=== PATIENT | female | born 1985 | race American Indian/Alaskan Native ===

== ENCOUNTER 2017-12-05 16:36 | Emergency (ER) | payer MEDICAID ==
[2017-12-05 16:55] VITALS: BP 111/75
--- NOTE | 2017-12-05 20:36 | Emergency Department Report ---
Eye Injury/Foreign Body - HPI Duration: 2 Days Eye Location: Left Severity: Moderate Tetanus Status: Up to Date Eye Symptoms: Eye Pain: Yes, Blurred Vision: No, Eye Redness: Yes, Grinding/ Hammering Metal: No, Used Eye Protection: No, Contact Lens Use: No, Recalls Injury: No, Photophobia: No Other History: This is a 32 y.o. female that presents with left eye itching and crusting for 2 days. Patient reports feeling pain and drainage in left ear. She was on antibiotics in [facility] for an abscess. States she has been having bilateral ear pain for 1 month and using peroxide to clean both ears daily with no improvement of symptoms. States her 1 year old had pink eye 1 week ago and passed it to her 17 year old. She woke up 2 days ago with crusting and drainage from left eye. Reports both eyes being pink in the morning. She is taking sudafed and benadryl because she thought she had sinus infection causing symptoms, but she is not getting better. Denies fever, sore throat, nausea/ vomiting, visual changes, body aches, and chest pain. ED Review of Systems ROS: Stated complaint: EAR AND EYE PAIN Other details as noted in HPI Constitutional: denies: chills, fever Eyes: eye pain, eye discharge. denies: vision change ENT: ear pain (left ear pain and clear drainage), congestion. denies: throat pain, dental pain, hearing loss, epistaxis Respiratory: denies: cough, shortness of breath, wheezing Cardiovascular: denies: chest pain, palpitations, edema, syncope Gastrointestinal: denies: abdominal pain, nausea, vomiting, diarrhea Neurological: denies: headache, weakness, numbness, paresthesias Psychiatric: denies: anxiety, depression ED Past Medical Hx - Past Medical History Previous Medical History?: No Hx Hypertension: No Hx Congestive Heart Failure: No Hx Diabetes: No Hx Deep Vein Thrombosis: No Hx Renal Disease: No Hx Sickle Cell Disease: No Hx Seizures: No Hx Asthma: No Hx COPD: No Hx HIV: No - Surgical History Past Surgical History?: Yes Additional Surgical History: hernia repair - Social History Smoking Status: Never Smoker Substance Use Type: None - Medications Home Medications: Home Medications Medication Instructions Recorded Confirmed Last Taken Type Ferrous Sulfate [Feosol 325 MG tab] 325 mg PO BID #60 tablet 09/21/14 03/30/16 2 Weeks Ago Rx ~01/31/16 Ibuprofen [Motrin 600 MG tab] 600 mg PO Q6H #30 tablet 09/21/14 03/30/16 Unknown Rx oxyCODONE /ACETAMINOPHEN [Percocet 1 tab PO Q6H PRN #30 tablet 09/21/14 Unknown Rx 5/325 mg] Valacyclovir HCl [valACYclovir] 1 tab PO BID 02/14/16 03/30/16 2 Weeks Ago History ~01/31/16 Azithromycin [AzaSITE Opth Drops] 2.5 ml OP DAILY 7 Days #1 drops 12/05/17 Unknown Rx Cetirizine HCl [Zyrtec] 10 mg PO DAILY #30 tablet 12/05/17 Unknown Rx Eye Injury Exam - Exam General: Vital signs noted. No distress. Alert and acting appropriately. - Visual Acuity Bilateral Eye Exam: Left Chemosis, Left Mucous Discharge, Both Injection, Both EOMI, Neither Abnormal Pupil, Neither Eye Foreign Body, Neither Lid Foreign Body, Neither Purulent Discharge, Neither Fluorescein Uptake, Neither Fluorescein Uptake (slit lamp), Neither Cell/Flare (slit lamp), Neither Corneal Edema, Neither Photophobia ED Course Vital Signs 12/05/17 16:50 Temperature 98.7 F Pulse Rate 112 H Respiratory 18 Rate Blood Pressure 111/75 O2 Sat by Pulse 98 Oximetry ED Medical Decision Making - Medical Decision Making This is a 32 year old female that presents with bilateral pink eyes with mucous discharge on left for 2 days. She is having left ear pain for 1 month. Patient is stable and was examined by me. Vitals normal. Physical assessment susceptible of conjunctivitis bilateral and allergic rhinitis. Start azithromycin gtts and zyrtec. Discussed plan with patient and she agreed with plan. Discharged home in stable condition. Follow up with PCP in 24-72 hours. Critical care attestation.: If time is entered above; I have spent that time in minutes in the direct care of this critically ill patient, excluding procedure time. ED Disposition Clinical Impression: Conjunctivitis Qualifiers: Conjunctivitis type: acute Acute conjunctivitis type: bacterial Laterality: bilateral Qualified Code(s): H10.33 - Unspecified acute conjunctivitis, bilateral Allergic rhinitis Qualifiers: Allergic rhinitis trigger: pollen Allergic rhinitis seasonality: seasonal Qualified Code(s): J30.1 - Allergic rhinitis due to pollen Disposition: DC-01 TO HOME OR SELFCARE Is pt being admited?: No Does the pt Need Aspirin: No Condition: Stable Instructions: Allergic Rhinitis (ED), Conjunctivitis (ED) Additional Instructions: Pinkeye is very contagious so please wash hands frequently. Don't share any towels or bedding to prevent spread of infection. Use cool compress to each eye to decrease swelling. Avoid rubbing or touching eyes, because rubbing eyes can cause worsening symptoms. Take medication as prescribed. Follow up with Primary Care Provider in 24-72 hours. Return to ER if swelling don't improve or difficulty breathing after 2 days of medication. Prescriptions: Azithromycin [AzaSITE Opth Drops] 2.5 ml OP DAILY 7 Days #1 drops Cetirizine HCl [Zyrtec] 10 mg PO DAILY #30 tablet Referrals: [facility] [Outside] - 3-5 Days [facility] [Outside] - 3-5 Days [facility] [Outside] - 3-5 Days Forms: Work/School Release Form(ED) Time of Disposition: 20:46 Print Language: ARMENIAN
== END 2017-12-05 20:55 | disposition home or self-care (01) ==
LOC: ED 16:36
DX: H10.9 Unspecified conjunctivitis (principal); J30.9 Allergic rhinitis, unspecified
CPT/HCPCS: 99282

== ENCOUNTER 2017-12-06 22:37 | Emergency (ER) | payer SELFPAY ==
[2017-12-06 22:51] VITALS: BP 111/76
--- NOTE | 2017-12-07 00:29 | Emergency Department Report ---
ED ENT HPI - General Chief complaint: Earache Stated complaint: EARACHE Time Seen by Provider: 12/07/17 00:21 Source: patient Mode of arrival: Ambulatory Limitations: No Limitations - History of Present Illness Initial comments: This is a 32-year-old female nontoxic, well nourished in appearance, no acute signs of distress presents to the ED with c/o of left ear pain 3 days. Patient stated that she has ear discharge and tragus pain. Patient denies any mastoid tenderness. Patient denies any recent travels. Patient denies any fever, chills, nausea, vomiting, headache, stiff neck, blurry vision, chest pain or shortness of breath. Patient denies any allergies or significant past medical history. MD complaint: ear pain -: days(s) (3) Location: L ear Severity: mild Severity scale (0 -10): 8 Quality: aching Consistency: constant Improves with: none Worsens with: none Associated Symptoms: denies: fever, cough, gum swelling, toothache, pain with swallowing, sore throat, tinnitus, hearing loss, discharge from ear, rhinorrhea - Related Data Home Medications Medication Instructions Recorded Confirmed Last Taken Valacyclovir HCl [valACYclovir] 1 tab PO BID 02/14/16 03/30/16 2 Weeks Ago ~01/31/16 Previous Rx's Medication Instructions Recorded Last Taken Type Ferrous Sulfate [Feosol 325 MG tab] 325 mg PO BID #60 tablet 09/21/14 2 Weeks Ago Rx ~01/31/16 Ibuprofen [Motrin 600 MG tab] 600 mg PO Q6H #30 tablet 09/21/14 Unknown Rx oxyCODONE /ACETAMINOPHEN [Percocet 1 tab PO Q6H PRN #30 tablet 09/21/14 Unknown Rx 5/325 mg] Azithromycin [AzaSITE Opth Drops] 2.5 ml OP DAILY 7 Days #1 drops 12/05/17 Unknown Rx Cetirizine HCl [Zyrtec] 10 mg PO DAILY #30 tablet 12/05/17 Unknown Rx Amoxicillin [Amoxicillin TAB] 875 mg PO BID #20 tablet 12/07/17 Unknown Rx Ciprofloxacin 0.2%(Nf) 4 drops TID #1 droperette 12/07/17 Unknown Rx [Ciprofloxacin Otic 0.2%(Nf)] Allergies Allergy/AdvReac Type Severity Reaction Status Date / Time No Known Allergies Allergy Verified 08/18/14 03:12 ED Dental HPI - General Chief complaint: Earache Stated complaint: EARACHE Time Seen by Provider: 12/07/17 00:21 Source: patient Mode of arrival: Ambulatory Limitations: No Limitations - Related Data Home Medications Medication Instructions Recorded Confirmed Last Taken Valacyclovir HCl [valACYclovir] 1 tab PO BID 02/14/16 03/30/16 2 Weeks Ago ~01/31/16 Previous Rx's Medication Instructions Recorded Last Taken Type Ferrous Sulfate [Feosol 325 MG tab] 325 mg PO BID #60 tablet 09/21/14 2 Weeks Ago Rx ~01/31/16 Ibuprofen [Motrin 600 MG tab] 600 mg PO Q6H #30 tablet 09/21/14 Unknown Rx oxyCODONE /ACETAMINOPHEN [Percocet 1 tab PO Q6H PRN #30 tablet 09/21/14 Unknown Rx 5/325 mg] Azithromycin [AzaSITE Opth Drops] 2.5 ml OP DAILY 7 Days #1 drops 12/05/17 Unknown Rx Cetirizine HCl [Zyrtec] 10 mg PO DAILY #30 tablet 12/05/17 Unknown Rx Amoxicillin [Amoxicillin TAB] 875 mg PO BID #20 tablet 12/07/17 Unknown Rx Ciprofloxacin 0.2%(Nf) 4 drops TID #1 droperette 12/07/17 Unknown Rx [Ciprofloxacin Otic 0.2%(Nf)] Allergies Allergy/AdvReac Type Severity Reaction Status Date / Time No Known Allergies Allergy Verified 08/18/14 03:12 ED Review of Systems ROS: Stated complaint: EARACHE Other details as noted in HPI Constitutional: denies: chills, fever Eyes: denies: eye pain, eye discharge, vision change ENT: ear pain. denies: throat pain Respiratory: denies: cough, shortness of breath, wheezing Cardiovascular: denies: chest pain, palpitations Endocrine: no symptoms reported Gastrointestinal: denies: abdominal pain, nausea, diarrhea Genitourinary: denies: urgency, dysuria, discharge Musculoskeletal: denies: back pain, joint swelling, arthralgia Skin: denies: rash, lesions Neurological: denies: headache, weakness, paresthesias Psychiatric: denies: anxiety, depression Hematological/Lymphatic: denies: easy bleeding, easy bruising ED Past Medical Hx - Past Medical History Previous Medical History?: No Hx Hypertension: No Hx Congestive Heart Failure: No Hx Diabetes: No Hx Deep Vein Thrombosis: No Hx Renal Disease: No Hx Sickle Cell Disease: No Hx Seizures: No Hx Asthma: No Hx COPD: No Hx HIV: No - Surgical History Past Surgical History?: Yes Additional Surgical History: hernia repair - Social History Smoking Status: Current Every Day Smoker Substance Use Type: None - Medications Home Medications: Home Medications Medication Instructions Recorded Confirmed Last Taken Type Ferrous Sulfate [Feosol 325 MG tab] 325 mg PO BID #60 tablet 09/21/14 03/30/16 2 Weeks Ago Rx ~01/31/16 Ibuprofen [Motrin 600 MG tab] 600 mg PO Q6H #30 tablet 09/21/14 03/30/16 Unknown Rx oxyCODONE /ACETAMINOPHEN [Percocet 1 tab PO Q6H PRN #30 tablet 09/21/14 Unknown Rx 5/325 mg] Valacyclovir HCl [valACYclovir] 1 tab PO BID 02/14/16 03/30/16 2 Weeks Ago History ~01/31/16 Azithromycin [AzaSITE Opth Drops] 2.5 ml OP DAILY 7 Days #1 drops 12/05/17 Unknown Rx Cetirizine HCl [Zyrtec] 10 mg PO DAILY #30 tablet 12/05/17 Unknown Rx Amoxicillin [Amoxicillin TAB] 875 mg PO BID #20 tablet 12/07/17 Unknown Rx Ciprofloxacin 0.2%(Nf) 4 drops TID #1 droperette 12/07/17 Unknown Rx [Ciprofloxacin Otic 0.2%(Nf)] ED Physical Exam - General Limitations: No Limitations General appearance: alert, in no apparent distress - Head Head exam: Present: atraumatic, normocephalic - Eye Eye exam: Present: normal appearance Pupils: Present: normal accommodation - ENT ENT exam: Present: normal orophraynx, mucous membranes moist - Expanded ENT Exam Expanded TM/Canal exam: Erythema: Left TM, Bulging: Left TM Mouth exam: Present: normal external inspection, tongue normal. Absent: drooling, trismus, muffled voice, tongue elevation, laceration Teeth exam: Present: normal inspection Throat exam: Positive: normal inspection, other (uvula midline). Negative: tonsillar erythema, tonsillomegaly, tonsillar exudate, R peritonsillar mass, L peritonsillar mass - Neck Neck exam: Present: normal inspection, full ROM. Absent: tenderness, meningismus, lymphadenopathy - Respiratory Respiratory exam: Present: normal lung sounds bilaterally. Absent: respiratory distress, wheezes, rales, rhonchi, stridor - Cardiovascular Cardiovascular Exam: Present: regular rate, normal rhythm, normal heart sounds. Absent: irregular rhythm, systolic murmur, diastolic murmur, rubs, gallop - GI/Abdominal GI/Abdominal exam: Present: soft, normal bowel sounds - Extremities Exam Extremities exam: Present: normal inspection, full ROM, normal capillary refill - Back Exam Back exam: Present: normal inspection, full ROM - Neurological Exam Neurological exam: Present: alert, oriented X3, normal gait - Psychiatric Psychiatric exam: Present: normal affect, normal mood - Skin Skin exam: Present: warm, dry, intact, normal color. Absent: rash - Other Other exam information: Positive tragus tenderness. Positive draiange of left ear. ED Course Vital Signs 12/06/17 22:45 Temperature 98.5 F Pulse Rate 122 H Respiratory 18 Rate Blood Pressure 111/76 O2 Sat by Pulse 98 Oximetry - Reevaluation(s) Reevaluation #1: 12/07/17 00:32 Patient is speaking in full sentences with no signs of distress noted. Critical care attestation.: If time is entered above; I have spent that time in minutes in the direct care of this critically ill patient, excluding procedure time. ED Disposition Clinical Impression: Left otitis media Qualifiers: Otitis media type: unspecified Qualified Code(s): H66.92 - Otitis media, unspecified, left ear Left otitis externa Qualifiers: Otitis externa type: unspecified type Chronicity: acute Qualified Code(s): H60.502 - Unspecified acute noninfective otitis externa, left ear Disposition: DC- TO HOME OR SELFCARE Is pt being admited?: No Does the pt Need Aspirin: No Condition: Stable Instructions: Otitis Media (ED), Otitis Externa (ED) Additional Instructions: Follow-up with a primary care doctor in 3-5 days or if symptoms worsen and continue return to emergency room as soon as possible. Prescriptions: Amoxicillin [Amoxicillin TAB] 875 mg PO BID #20 tablet Ciprofloxacin 0.2%(Nf) [Ciprofloxacin Otic 0.2%(Nf)] 4 drops TID #1 droperette Referrals: CRISTINA DESIR MD [Primary Care Provider] - 3-5 Days PAUL PAINTER MD [Staff Physician] - 3-5 Days [facility] [Outside] - 3-5 Days Forms: Work/School Release Form(ED)
== END 2017-12-07 00:45 | disposition home or self-care (01) ==
LOC: ED 22:37
DX: H60.8X2 Other otitis externa, left ear (principal); H66.92 Otitis media, unspecified, left ear; F17.200 Nicotine dependence, unspecified, uncomplicated
CPT/HCPCS: 99282

== ENCOUNTER 2019-04-25 02:50 | Emergency (ER) | payer MEDICAID, SELFPAY ==
[2019-04-25 03:04] VITALS: BP 134/88
[2019-04-25] MEDS ORDERED: TORADOL IM ONE (05:46)
[2019-04-25] MEDS ORDERED: DECADRON IM ONE (05:46)
[2019-04-25 06:38] LABS: Hematocrit 33.6 % (30.3-42.9); Hemoglobin 11.3 gm/dl (10.1-14.3); Mean Corpuscular HGB Conc 34 % (30-34); Mean Corpuscular Volume 92 fl (79-97); Platelet Count 358 K/mm3 (140-440); Red Blood Count 3.66 M/mm3 (3.65-5.03); Red Cell Distribution Width 14.1 % (13.2-15.2)
[2019-04-25 07:02] LABS: Alanine Aminotransferase 10 units/L (7-56); Albumin 4.4 g/dL (3.9-5); BUN/Creatinine Ratio 11; Blood Urea Nitrogen 9 mg/dL (7-17); Calcium 9.4 mg/dL (8.4-10.2); Hemolysis Index 33
[2019-04-25 07:57] LABS: Basophils % (Manual) 0 % (0.0-1.8); Eosinophils % (Manual) 0 % (0.0-4.3); Total Cells Counted 100
[2019-04-25 07:58] LABS: Ovalocytes Few; Platelet Estimate Consistent w Auto
== END 2019-04-25 06:32 | disposition left against medical advice (07) ==
LOC: ED 02:50
DX: R55 Syncope and collapse (principal); Z53.21 Procedure and treatment not carried out due to patient leaving prior to being seen by health care provider
CPT/HCPCS: 36415; 80053; 84484; 85007; 85025; 93005; 93010; J1100; J1885

== ENCOUNTER 2021-03-08 01:46 | Emergency (ER) | payer MEDICAID | END 2021-03-08 02:15 | disposition left against medical advice (07) | LOC: ED 01:46 | DX: Z00.8 Encounter for other general examination (principal); Z53.21 Procedure and treatment not carried out due to patient leaving prior to being seen by health care provider ==

== ENCOUNTER 2021-05-20 00:29 | Emergency (ER) | payer MEDICAID ==
[2021-05-20] MEDS ORDERED: SODIUM CHLORIDE 0.9% 1000 ML 1,000 ML IV ONE (01:17)
--- NOTE | 2021-05-20 01:32 | Emergency Department Report ---
ED HPI - General Chief complaint: Vaginal Bleeding Stated complaint: VAGINAL BLEEDING,BLURRED VISION Time Seen by Provider: 05/20/21 01:17 Source: patient Mode of arrival: Ambulatory Limitations: No Limitations - History of Present Illness Initial comments: Patient is a 36-year-old female who presents emergency room for heavy vaginal bleeding. Patient states she been bleeding for 3 days. Patient states she saw her PHOTOGRAPHIC ENGINEER 3 days ago and was told that there was no heart tones and to go home because she is having a natural miscarriage. Patient went home and began having heavy bleeding. Patient states the heavy bleeding is been nonstop and continuous. Patient states passing large clots. Patient states she has a follow-up appoint with her PHOTOGRAPHIC ENGINEER today. Patient states he came to the hospital because he is starting to feel weak have blurry vision. Patient states that her vaginal bleeding and all of her symptoms are worsening. Patient states she is not taking any vitamins. Patient states she was not giving any pills for an . Patient is a G 10 . Patient states she is not vaccinated gets COVID-19. Patient denies recent travel. Patient denies recent international travel. Patient denies exposure to the novel coronavirus. Patient denies sick contacts. Patient denies fever and chills. Patient denies cough. Patient denies diarrhea. Patient denies coming in contact with anybody with symptoms of the novel coronavirus. MD Complaint: abdominal pain, vaginal bleeding -: Gradual Location: pelvis Severity: mild Quality: cramping Consistency: constant Associated symptoms: vaginal bleeding, abdominal pain, vision changes, weakness. denies: vaginal discharge, dysuria, headache, malaise, dysparuenia, rash, seizure, shortness of breath, syncope - Related Data Home Medications Medication Instructions Recorded Confirmed Last Taken Valacyclovir HCl [valACYclovir] 1 tab PO BID 02/14/16 03/30/16 2 Weeks Ago ~01/31/16 Previous Rx's Medication Instructions Recorded Last Taken Type Ferrous Sulfate [Feosol 325 MG tab] 325 mg PO BID #60 tablet 09/21/14 2 Weeks Ago Rx ~01/31/16 Ibuprofen [Motrin 600 MG tab] 600 mg PO Q6H #30 tablet 09/21/14 Unknown Rx oxyCODONE /ACETAMINOPHEN [Percocet 1 tab PO Q6H PRN #30 tablet 09/21/14 Unknown Rx 5/325 mg] Azithromycin [AzaSITE Opth Drops] 2.5 ml OP DAILY 7 Days #1 drops 12/05/17 Unknown Rx Cetirizine HCl [Zyrtec 10mg tab] 10 mg PO DAILY #30 tablet 12/05/17 Unknown Rx Amoxicillin [Amoxicillin TAB] 875 mg PO BID #20 tablet 12/07/17 Unknown Rx Ciprofloxacin 0.2%(Nf) 4 drops TID #1 droperette 12/07/17 Unknown Rx [Ciprofloxacin Otic 0.2%(Nf)] Diclofenac Sodium 50 mg PO Q8H PRN #30 tablet. 03/04/20 Unknown Rx methOCARBAMOL [Robaxin TAB] 750 mg PO Q8H PRN #30 tablet 03/04/20 Unknown Rx predniSONE [Deltasone] 40 mg PO QDAY #10 tab 03/04/20 Unknown Rx traMADoL [Ultram] 50 mg PO Q6HR PRN #12 tablet 03/04/20 Unknown Rx Iron Fum,Ps/Folic/Bcomp,C No.9 1 each PO BID 30 Days #60 capsule 05/20/21 Unknown Rx [Integra Plus Capsule] miSOPROStoL [Cytotec] 200 mcg PO Q6HR 1 Days #4 tablet 05/20/21 Unknown Rx Allergies Allergy/AdvReac Type Severity Reaction Status Date / Time No Known Allergies Allergy Verified 05/20/21 00:41 ED Review of Systems ROS: Stated complaint: VAGINAL BLEEDING,BLURRED VISION Other details as noted in HPI Constitutional: denies: chills, fever Eyes: denies: eye pain, eye discharge, vision change ENT: denies: ear pain, throat pain Respiratory: denies: cough, shortness of breath, wheezing Cardiovascular: denies: chest pain, palpitations Endocrine: no symptoms reported Gastrointestinal: as per HPI, abdominal pain. denies: nausea, diarrhea Genitourinary: as per HPI. denies: urgency, dysuria, discharge Musculoskeletal: denies: back pain, joint swelling, arthralgia Skin: denies: rash, lesions Neurological: denies: headache, weakness, paresthesias Psychiatric: denies: anxiety, depression Hematological/Lymphatic: denies: easy bleeding, easy bruising ED Past Medical Hx - Past Medical History Previous Medical History?: Yes Hx Hypertension: No Hx Congestive Heart Failure: No Hx Diabetes: No Hx Deep Vein Thrombosis: No Hx Renal Disease: No Hx Sickle Cell Disease: No Hx Seizures: No Hx Asthma: No Hx COPD: No Hx HIV: No Additional medical history: heart murmur - Surgical History Past Surgical History?: Yes Additional Surgical History: hernia repair - Family History Family history: no significant - Social History Smoking Status: Former Smoker Substance Use Type: None - Medications Home Medications: Home Medications Medication Instructions Recorded Confirmed Last Taken Type Ferrous Sulfate [Feosol 325 MG tab] 325 mg PO BID #60 tablet 09/21/14 03/30/16 2 Weeks Ago Rx ~01/31/16 Ibuprofen [Motrin 600 MG tab] 600 mg PO Q6H #30 tablet 09/21/14 03/30/16 Unknown Rx oxyCODONE /ACETAMINOPHEN [Percocet 1 tab PO Q6H PRN #30 tablet 09/21/14 03/30/16 Unknown Rx 5/325 mg] Valacyclovir HCl [valACYclovir] 1 tab PO BID 02/14/16 03/30/16 2 Weeks Ago Hist ory ~01/31/16 Azithromycin [AzaSITE Opth Drops] 2.5 ml OP DAILY 7 Days #1 drops 12/05/17 Un known Rx Cetirizine HCl [Zyrtec 10mg tab] 10 mg PO DAILY #30 tablet 12/05/17 Unknown Rx Amoxicillin [Amoxicillin TAB] 875 mg PO BID #20 tablet 12/07/17 Unknown Rx Ciprofloxacin 0.2%(Nf) 4 drops TID #1 droperette 12/07/17 Unknown Rx [Ciprofloxacin Otic 0.2%(Nf)] Diclofenac Sodium 50 mg PO Q8H PRN #30 tablet. 03/04/20 Unknown Rx methOCARBAMOL [Robaxin TAB] 750 mg PO Q8H PRN #30 tablet 03/04/20 Unknown Rx predniSONE [Deltasone] 40 mg PO QDAY #10 tab 03/04/20 Unknown Rx traMADoL [Ultram] 50 mg PO Q6HR PRN #12 tablet 03/04/20 Unknown Rx Iron Fum,Ps/Folic/Bcomp,C No.9 1 each PO BID 30 Days #60 capsule 05/20/21 Unknown Rx [Integra Plus Capsule] miSOPROStoL [Cytotec] 200 mcg PO Q6HR 1 Days #4 tablet 05/20/21 Unknown Rx ED Physical Exam - General Limitations: No Limitations General appearance: alert, in no apparent distress - Head Head exam: Present: atraumatic, normocephalic - Eye Eye exam: Present: normal appearance - ENT ENT exam: Present: mucous membranes moist - Neck Neck exam: Present: normal inspection - Respiratory Respiratory exam: Present: normal lung sounds bilaterally. Absent: respiratory distress - Cardiovascular Cardiovascular Exam: Present: regular rate, normal rhythm. Absent: systolic murmur, diastolic murmur, rubs, gallop - GI/Abdominal GI/Abdominal exam: Present: soft, tenderness, normal bowel sounds - Extremities Exam Extremities exam: Present: normal inspection - Back Exam Back exam: Present: normal inspection - Neurological Exam Neurological exam: Present: alert, oriented X3 - Psychiatric Psychiatric exam: Present: normal affect, normal mood - Skin Skin exam: Present: warm, dry, intact, normal color. Absent: rash ED Course Vital Signs 05/20/21 05/20/21 05/20/21 00:33 00:58 01:00 Temperature 98.8 F Pulse Rate 110 H 103 H 94 H Respiratory 18 19 15 Rate Blood Pressure 114/83 O2 Sat by Pulse 100 100 Oximetry 05/20/21 05/20/21 05/20/21 01:16 01:30 01:46 Temperature Pulse Rate 95 H 93 H 105 H Respiratory 27 H 25 H 12 Rate Blood Pressure 108/71 108/71 108/71 O2 Sat by Pulse 100 100 100 Oximetry 05/20/21 05/20/21 05/20/21 02:00 02:03 02:16 Temperature Pulse Rate 96 H 88 Respiratory 22 20 21 Rate Blood Pressure 130/90 130/90 O2 Sat by Pulse 100 100 100 Oximetry 05/20/21 05/20/21 05/20/21 02:30 02:46 03:00 Temperature Pulse Rate 81 78 87 Respiratory 14 12 14 Rate Blood Pressure 130/90 117/67 113/65 O2 Sat by Pulse 100 100 100 Oximetry 05/20/21 05/20/21 05/20/21 03:16 03:30 03:46 Temperature Pulse Rate 73 78 76 Respiratory 17 18 17 Rate Blood Pressure 117/67 117/67 117/67 O2 Sat by Pulse 100 100 100 Oximetry 05/20/21 05/20/21 05/20/21 04:00 04:16 04:30 Temperature Pulse Rate 79 99 H 84 Respiratory 15 Rate Blood Pressure 104/61 104/61 104/61 O2 Sat by Pulse 100 100 100 Oximetry 05/20/21 05/20/21 05/20/21 04:46 05:00 05:16 Temperature Pulse Rate 85 82 79 Respiratory 16 Rate Blood Pressure 104/61 105/63 105/63 O2 Sat by Pulse 100 100 100 Oximetry 05/20/21 05/20/21 05/20/21 05:30 05:46 06:00 Temperature Pulse Rate 87 Respiratory 18 15 16 Rate Blood Pressure 105/63 105/63 107/65 O2 Sat by Pulse 100 100 100 Oximetry - Reevaluation(s) Reevaluation #1: I discussed all results with patient. I discussed plan of care with patient. Patient has bled through her at least 3 pads while in the ER. Patient states she still actively bleeding. I will discuss this case with PHOTOGRAPHIC ENGINEER. 05/20/21 04:02 Reevaluation #2: Patient will receive Cytotec in the ER. 05/20/21 04:14 Reevaluation #3: Patient's bleeding has improved. Patient is bleeding essentially stopped. I discussed all results and clinical findings with patient. I discussed plan of care with patient. Patient agrees with plan of care. Patient is stable for discharge. Patient will be discharged home. Patient given discharge instructions. Patient voiced understanding of discharge instructions. 05/20/21 05:41 - Consultations Consultation #1: I discussed the case with Dr. Mejia, PHOTOGRAPHIC ENGINEER. Dr. Becker recommends Cytotec 200 mg x 1 here and discharged home with Cytotec 200 mg q. 6 hours x 4 doses and the patient to follow-up with her PHOTOGRAPHIC ENGINEER. 05/20/21 04:06 ED Medical Decision Making - Lab Data Result diagrams: 05/20/21 01:28 05/20/21 01:28 - Radiology Data Radiology results: report reviewed EARLY OBSTETRICAL ULTRASOUND INDICATION: vaginal bleed, , pelvic pain COMPARISON: None pertinent available TECHNIQUE: Transabdominal FINDINGS: Uterus measures 10.9 cm in length. Endometrial stripe measures 10 mm and is mildly heterogenous in appearance including mild areas of increased echogenicity. There is some blood flow seen within the endometrial canal on color Doppler examination. What appears to represent a gestational sac with a double wall sign is seen in the lower uterine segment and cervix. No pole is clearly identified and no cardiac activity is noted. By sac size gestational age would be 7 weeks 4 days Right ovary measures 2.9 cm in length and shows no abnormalities. Left ovary measures 2 cm in length and shows no abnormalities. Flow is seen in both ovaries. A trace of free fluid is seen. IMPRESSION: 1. A 7 week 4 day gestational sac is noted in the lower uterine segment and cervix without obvious pole. Probably this is a spontaneous in progress. 2. Mildly heterogenous appearance to the endometrial canal in the uterine fundus and body probably just represents blood but on color Doppler examination there is some color flow noted in this area which is unusual unless there is significant hemorrhage occurring. Given the early stage of retained products of conception would seem unlikely. I would suggest follow-up of this area however. If there is ongoing vaginal bleeding of significant degree that should be closely monitored given these findings. - Medical Decision Making Patient is a 36-year-old female who presents emergency room with complaints of heavy vaginal bleeding. Patient vaginal bleeding on for 3 days. Patient had an PHOTOGRAPHIC ENGINEER appointment 3 days ago and was told that she was going to have a mis carriage. Patient bleeding heavily in the ER. Patient had labs done which showed a positive hCG and anemia. Patient's baseline H&H is 11.2. Patient's hemoglobin is 9.2 today.. I discussed the case with the on-call PHOTOGRAPHIC ENGINEER. Orders were received. Patient was given Cytotec and her bleeding improved. Patient was soaking through pads however the bleeding improved. The patient's heart rate improved. Per the recommendations of the PHOTOGRAPHIC ENGINEER, the patient be discharged home with Cytotec. Patient will also be discharged home with iron supplement. Patient not require inpatient services. Patient not require further emergency medical service. Patient given discharge instructions. I discussed all results and clinical findings with patient. I discussed plan of care with patient. Patient agrees with plan of care. Patient is stable for discharge. Patient will be discharged home. Patient given discharge instructions. Patient voiced understanding of discharge instructions. - Differential Diagnosis Miscarriage, vaginal bleeding, hemorrhage, anemia Critical Care Time: Yes Critical care time in (mins) excluding proc time.: 35 Critical care attestation.: If time is entered above; I have spent that time in minutes in the direct care of this critically ill patient, excluding procedure time. Critical Care Time: 35 minutes ED Disposition Clinical Impression: Miscarriage, Vaginal bleeding before 22 weeks gestation Disposition: HOME / SELF CARE / HOMELESS Is pt being admited?: No Does the pt Need Aspirin: No Condition: Stable Instructions: Miscarriage, Managing Loss Additional Instructions: Patient to follow-up with primary care in 2 to 3 days. Patient to follow-up with PHOTOGRAPHIC ENGINEER in 2 to 3 days. Patient to rest. Patient to increase water. Patient to avoid strenuous exercise or heavy lifting until cleared by PHOTOGRAPHIC ENGINEER. Patient to take Tylenol or ibuprofen as needed for pain. Patient to take meds as directed. Patient to return to the ER if condition worsens, changes or new symptoms arise. Prescriptions: miSOPROStoL [Cytotec] 200 mcg PO Q6HR 1 Days #4 tablet Iron Fum,Ps/Folic/Bcomp,C No.9 [Integra Plus Capsule] 1 each PO BID 30 Days #60 capsule Referrals: PRIMARY CARE, [Primary Care Provider] - 2-3 Days Time of Disposition: 05:49
[2021-05-20 01:59] LABS: Basophils % (Auto) 0.4 % (0.0-1.8); Eosinophils # (Auto) 0.2 K/mm3 (0.0-0.4); Eosinophils % (Auto) 2.8 % (0.0-4.3); Hematocrit 26.2 % (30.3-42.9); Hemoglobin 9.2 gm/dl (10.1-14.3); Lymphocytes # (Auto) 3.3 K/mm3 (1.2-5.4); Lymphocytes % (Auto) 39.6 % (13.4-35.0); Mean Corpuscular HGB Conc 35 % (30-34); Mean Corpuscular Volume 97 fl (79-97); Monocytes # (Auto) 0.5 K/mm3 (0.0-0.8); Monocytes % (Auto) 6.2 % (0.0-7.3); Platelet Count 299 K/mm3 (140-440)
[2021-05-20 02:03] LABS: Blood Urea Nitrogen 6 mg/dL (7-17); Calcium 9.2 mg/dL (8.4-10.2); Hemolysis Index 0
[2021-05-20 02:06] LABS: BUN/Creatinine Ratio 10
--- NOTE | 2021-05-20 03:54 | Ultrasound Report ---
EARLY OBSTETRICAL ULTRASOUND INDICATION: vaginal bleed, , pelvic pain COMPARISON: None pertinent available TECHNIQUE: Transabdominal FINDINGS: Uterus measures 10.9 cm in length. Endometrial stripe measures 10 mm and is mildly heteroge nous in appearance including mild areas of increased echogenicity. There is some blood flow seen with in the endometrial canal on color Doppler examination. What appears to represent a gestational sac wi th a double wall sign is seen in the lower uterine segment and cervix. No pole is clearly ident ified and no cardiac activity is noted. By sac size gestational age would be 7 weeks 4 days Right ovary measures 2.9 cm in length and shows no abnormalities. Left ovary measures 2 cm in length and shows no abnormalities. Flow is seen in both ovaries. A trace of free fluid is seen. IMPRESSION: 1. A 7 week 4 day gestational sac is noted in the lower uterine segment and cervix without obvious fe eliot pole. Probably this is a spontaneous in progress. 2. Mildly heterogenous appearance to the endometrial canal in the uterine fundus and body probably ju st represents blood but on color Doppler examination there is some color flow noted in this area whic h is unusual unless there is significant hemorrhage occurring. Given the early stage of ret ained products of conception would seem unlikely. I would suggest follow-up of this area however. If there is ongoing vaginal bleeding of significant degree that should be closely monitored given these findings. Signer Name: Eagle Lo MD Signed: 05/20/2021 3:50 AM Workstation Name: [id number]
[2021-05-20] MEDS ORDERED: miSOPROStol 200 MCG TAB PO NR (04:13)
[2021-05-20 07:09] VITALS: BP 100/65
== END 2021-05-20 07:13 | disposition home or self-care (01) ==
LOC: ED 00:29
DX: O03.9 Complete or unspecified spontaneous abortion without complication (principal); R01.1 Cardiac murmur, unspecified; Z98.890 Other specified postprocedural states; Z87.891 Personal history of nicotine dependence
CPT/HCPCS: 36415; 76801; 80048; 84702; 85025; 86850; 86900; 86901; 96360; 96361; 99284; J7030; 99291

== ENCOUNTER 2021-05-23 23:42 | Emergency (ER) | payer MEDICAID ==
[2021-05-24] MEDS ORDERED: SODIUM CHLORIDE 0.9% 1000 ML 1,000 ML IV ONE (00:22)
[2021-05-24] MEDS ORDERED: ONDANSETRON 4 MG/2 ML INJ IV ONE (00:22)
[2021-05-24] MEDS ORDERED: MORPHINE 4 MG/1 ML INJ IV ONE (00:22)
[2021-05-24 01:24] LABS: Basophils % (Auto) 0.3 % (0.0-1.8); Eosinophils # (Auto) 0.4 K/mm3 (0.0-0.4); Eosinophils % (Auto) 4.3 % (0.0-4.3); Hematocrit 24.2 % (30.3-42.9); Hemoglobin 8.5 gm/dl (10.1-14.3); Lymphocytes # (Auto) 3.4 K/mm3 (1.2-5.4); Lymphocytes % (Auto) 33.6 % (13.4-35.0); Mean Corpuscular HGB Conc 35 % (30-34); Mean Corpuscular Volume 98 fl (79-97); Monocytes # (Auto) 0.7 K/mm3 (0.0-0.8); Monocytes % (Auto) 6.8 % (0.0-7.3); Platelet Count 340 K/mm3 (140-440); Red Blood Count 2.47 M/mm3 (3.65-5.03)
[2021-05-24 01:40] LABS: Alanine Aminotransferase 14 units/L (7-56); BUN/Creatinine Ratio 5; Blood Urea Nitrogen 4 mg/dL (7-17); Calcium 9.1 mg/dL (8.4-10.2); Hemolysis Index 2
[2021-05-24] MEDS ORDERED: FAMOTIDINE 20 MG/2 ML INJ IV ONE (03:54)
[2021-05-24] MEDS ORDERED: dexAMETHasone 20 MG/5 ML VIAL IV ONE (03:54)
[2021-05-24] MEDS ORDERED: diphenhydrAMINE 50 MG/ML VIAL IV ONE (03:54)
[2021-05-24 04:29] LABS: Bacteria,Urine 1+ /HPF (Negative); Bilirubin,Urine NEG (Negative); Blood,Urine LG (Negative); Color,Urine Red (Yellow); Urobilinogen,Urine < 2.0 mg/dL (<2.0)
[2021-05-24] MEDS ORDERED: cefTRIAXone/NS 1 GM/50 ML 1 GM/50 ML BAG IV ONE (04:40)
--- NOTE | 2021-05-24 04:45 | Emergency Department Report ---
ED Female HPI - General Chief complaint: Vaginal Bleeding Stated complaint: LIGHT HEADED/SOB Source: patient Mode of arrival: Ambulatory Limitations: No Limitations - History of Present Illness Initial comments: Patient is a [id number] 36-year-old -[place] female who is currently undergoing miscarriage presents to the ED with persistent severe pelvic pain with heavy vaginal bleeding for the last 1 week. Patient was initially evaluated in this ED about 3 days ago and at that time she was noted to to have commenced miscarriage with no heartbeat and an empty gestational sac. Patient states that she has continued to bleed and that in the last 24 hours the bleeding got more heavier and that the pain in the pelvic area also got worse. Patient denies fever, chills, nausea, vomiting, dizziness, syncope, headache, vaginal discharge, dysuria, urinary frequency and urgency, diarrhea, chest pain or shortness of breath. MD Complaint: vaginal bleeding, pelvic pain -: Sudden, week(s) (1) Location: suprapubic Radiation: non-radiating Severity: severe Severity scale (0 -10): 8 Quality: cramping, sharp Consistency: constant Improves with: none Worsens with: none Are you Now?: Yes (Having a miscarriage) Associated Symptoms: vaginal bleeding (Heavy vaginal bleeding), abdominal pain (Suprapubic pain), loss of appetite, dysuria. denies: nausea/vomiting, fever/chills, headaches, hematuria, rash, seizure, shortness of breath, syncope, weakness - Related Data Sexually active: Yes : 10 Para: 5 A: 5 Home Medications Medication Instructions Recorded Confirmed Last Taken Valacyclovir HCl [valACYclovir] 1 tab PO BID 02/14/16 03/30/16 2 Weeks Ago ~01/31/16 Previous Rx's Medication Instructions Recorded Last Taken Type Ibuprofen [Motrin 600 MG tab] 600 mg PO Q6H #30 tablet 09/21/14 Unknown Rx oxyCODONE /ACETAMINOPHEN [Percocet 1 tab PO Q6H PRN #30 tablet 09/21/14 Unknown Rx 5/325 mg] Azithromycin [AzaSITE Opth Drops] 2.5 ml OP DAILY 7 Days #1 drops 12/05/17 Unknown Rx Cetirizine HCl [Zyrtec 10mg tab] 10 mg PO DAILY #30 tablet 12/05/17 Unknown Rx Amoxicillin [Amoxicillin TAB] 875 mg PO BID #20 tablet 12/07/17 Unknown Rx Ciprofloxacin 0.2%(Nf) 4 drops TID #1 droperette 12/07/17 Unknown Rx [Ciprofloxacin Otic 0.2%(Nf)] Diclofenac Sodium 50 mg PO Q8H PRN #30 tablet. 03/04/20 Unknown Rx methOCARBAMOL [Robaxin TAB] 750 mg PO Q8H PRN #30 tablet 03/04/20 Unknown Rx predniSONE [Deltasone] 40 mg PO QDAY #10 tab 03/04/20 Unknown Rx Iron Fum,Ps/Folic/Bcomp,C No.9 1 each PO BID 30 Days #60 capsule 05/20/21 Unknown Rx [Integra Plus Capsule] miSOPROStoL [Cytotec] 200 mcg PO Q6HR 1 Days #4 tablet 05/20/21 Unknown Rx Ferrous Sulfate [Feosol 325 MG tab] 325 mg PO BID #60 tablet 05/24/21 Unknown Rx Ibuprofen [Motrin] 800 mg PO Q8HR PRN #30 tablet 05/24/21 Unknown Rx Ondansetron [Zofran Odt] 4 mg PO Q8HR PRN #15 tab.rapdis 05/24/21 Unknown Rx cephALEXin [Keflex] 500 mg PO Q8HR #30 cap 05/24/21 Unknown Rx diphenhydrAMINE [Benadryl CAP] 25 mg PO Q8HR PRN #30 capsule 05/24/21 Unknown Rx predniSONE [Deltasone] 40 mg PO QDAY #10 tab 05/24/21 Unknown Rx traMADoL [Ultram 50 MG tab] 50 mg PO Q6HR PRN #12 tablet 05/24/21 Unknown Rx Allergies Allergy/AdvReac Type Severity Reaction Status Date / Time morphine Allergy Shortness Verified 05/24/21 04:09 of Breath ED Review of Systems ROS: Stated complaint: LIGHT HEADED/SOB Other details as noted in HPI Constitutional: malaise, weakness. denies: chills, fever Eyes: denies: eye pain, eye discharge, vision change ENT: denies: ear pain, throat pain Respiratory: denies: cough, shortness of breath, wheezing Cardiovascular: denies: chest pain, palpitations Endocrine: no symptoms reported Gastrointestinal: abdominal pain (Suprapubic pain). denies: nausea, vomiting, diarrhea Genitourinary: abnormal menses (Heavy vaginal bleeding). denies: urgency, dysuria, discharge Musculoskeletal: denies: back pain, joint swelling, arthralgia Skin: denies: rash, lesions Neurological: denies: headache, weakness, paresthesias Psychiatric: denies: anxiety, depression Hematological/Lymphatic: denies: easy bleeding, easy bruising ED Past Medical Hx - Past Medical History Hx Hypertension: No Hx Congestive Heart Failure: No Hx Diabetes: No Hx Deep Vein Thrombosis: No Hx Renal Disease: No Hx Sickle Cell Disease: No Hx Seizures: No Hx Asthma: No Hx COPD: No Hx HIV: No Additional medical history: heart murmur - Surgical History Additional Surgical History: hernia repair - Social History Smoking Status: Current Every Day Smoker Substance Use Type: None - Medications Home Medications: Home Medications Medication Instructions Recorded Confirmed Last Taken Type Ibuprofen [Motrin 600 MG tab] 600 mg PO Q6H #30 tablet 09/21/14 03/30/16 Unknown Rx oxyCODONE /ACETAMINOPHEN [Percocet 1 tab PO Q6H PRN #30 tablet 09/21/14 03/30/16 Unknown Rx 5/325 mg] Valacyclovir HCl [valACYclovir] 1 tab PO BID 02/14/16 03/30/16 2 Weeks Ago History ~01/31/16 Azithromycin [AzaSITE Opth Drops] 2.5 ml OP DAILY 7 Days #1 drops 12/05/17 Unknown Rx Cetirizine HCl [Zyrtec 10mg tab] 10 mg PO DAILY #30 tablet 12/05/17 Unknown Rx Amoxicillin [Amoxicillin TAB] 875 mg PO BID #20 tablet 12/07/17 Unknown Rx Ciprofloxacin 0.2%(Nf) 4 drops TID #1 droperette 12/07/17 Unknown Rx [Ciprofloxacin Otic 0.2%(Nf)] Diclofenac Sodium 50 mg PO Q8H PRN #30 tablet. 03/04/20 Unknown Rx methOCARBAMOL [Robaxin TAB] 750 mg PO Q8H PRN #30 tablet 03/04/20 Unknown Rx predniSONE [Deltasone] 40 mg PO QDAY #10 tab 03/04/20 Unknown Rx Iron Fum,Ps/Folic/Bcomp,C No.9 1 each PO BID 30 Days #60 capsule 05/20/21 Unknown Rx [Integra Plus Capsule] miSOPROStoL [Cytotec] 200 mcg PO Q6HR 1 Days #4 tablet 05/20/21 Unknown Rx Ferrous Sulfate [Feosol 325 MG tab] 325 mg PO BID #60 tablet 05/24/21 Unknown Rx Ibuprofen [Motrin] 800 mg PO Q8HR PRN #30 tablet 05/24/21 Unknown Rx Ondansetron [Zofran Odt] 4 mg PO Q8HR PRN #15 tab.rapdis 05/24/21 Unknown Rx cephALEXin [Keflex] 500 mg PO Q8HR #30 cap 05/24/21 Unknown Rx diphenhydrAMINE [Benadryl CAP] 25 mg PO Q8HR PRN #30 capsule 05/24/21 Unknown Rx predniSONE [Deltasone] 40 mg PO QDAY #10 tab 05/24/21 Unknown Rx traMADoL [Ultram 50 MG tab] 50 mg PO Q6HR PRN #12 tablet 05/24/21 Unknown Rx ED Physical Exam - General Limitations: No Limitations General appearance: alert, in no apparent distress - Head Head exam: Present: atraumatic, normocephalic, normal inspection - Eye Eye exam: Present: normal appearance, PERRL, EOMI Pupils: Present: normal accommodation - ENT ENT exam: Present: normal exam, normal orophraynx, mucous membranes moist, TM's normal bilaterally, normal external ear exam - Neck Neck exam: Present: normal inspection, full ROM - Respiratory Respiratory exam: Present: normal lung sounds bilaterally. Absent: respiratory distress, wheezes, rales, rhonchi, chest wall tenderness, accessory muscle use, decreased breath sounds, prolonged expiratory, other - Cardiovascular Cardiovascular Exam: Present: regular rate, normal rhythm, normal heart sounds. Absent: systolic murmur, diastolic murmur, rubs, gallop - GI/Abdominal GI/Abdominal exam: Present: soft, tenderness (Palpable suprapubic tenderness), normal bowel sounds. Absent: guarding, rebound, hyperactive bowel sounds, hypoactive bowel sounds - Bi-manual exam: Present: other (Pelvic exam deferred at this time) - Extremities Exam Extremities exam: Present: normal inspection, full ROM, normal capillary refill - Back Exam Back exam: Present: normal inspection, full ROM. Absent: tenderness, CVA tenderness (R), CVA tenderness (L), muscle spasm, paraspinal tenderness, vertebral tenderness - Neurological Exam Neurological exam: Present: alert, oriented X3, CN II-XII intact, normal gait, reflexes normal - Psychiatric Psychiatric exam: Present: normal affect, normal mood - Skin Skin exam: Present: warm, dry, intact, normal color. Absent: rash ED Course Vital Signs 05/24/21 05/24/21 05/24/21 00:02 00:52 02:02 Temperature 99.6 F 99.1 F Pulse Rate 97 H 88 Respiratory 22 16 16 Rate Blood Pressure 136/95 Blood Pressure 134/100 [Left] O2 Sat by Pulse 100 100 Oximetry 05/24/21 05/24/21 03:55 04:34 Temperature Pulse Rate 121 H 86 Respiratory 16 Rate Blood Pressure Blood Pressure 118/85 111/69 [Left] O2 Sat by Pulse 100 97 Oximetry ED Medical Decision Making - Lab Data Result diagrams: 05/24/21 00:28 05/24/21 00:28 - Medical Decision Making This is a [id number] 36-year-old -[place] female who is currently undergoing miscarriage presents to the ED with persistent severe pelvic pain with heavy vaginal bleeding for the last 1 week. Patient was initially evaluated in this ED about 3 days ago and at that time she was noted to to have commenced miscarriage with no heartbeat and an empty gestational sac. Patient states that she has continued to bleed and that in the last 24 hours the bleeding got more heavier and that the pain in the pelvic area also got worse. In the ED, patient is alert and oriented x3 and is not in any distress but appears to be in pain. Patient was treated for pain and was given antiemetics and normal saline 1 L IV bolus x1. Lab test results were reviewed and showed hCG quant of 583.7 compared to the previous hCG quant of 1685 3 days ago. It also showed H&H of 8.5 and 24.2 respectively. Urinalysis showed significant urinary tract infection. Given the fact that the hCG quant is significantly lower compared to what it was 3 days ago, no ultrasound was performed as the patient is already having a miscarriage. The previous ultrasound performed 3 days ago confirmed demise. Patient was treated with Rocephin 1 g IV x1 for urinary tract infection. On reevaluation, patient felt better, patient is hemodynamically stable and was discharged home on pain medications and antibiotics and advised to follow-up with SITE SAFETY REPRESENTATIVE physician in 2 to 3 days for reevaluation or return to the ED immediately if symptoms get worse. - Differential Diagnosis Complete miscarriage; UTI; ovarian cyst; subchorionic bleed; dysmenorrhea Critical care attestation.: If time is entered above; I have spent that time in minutes in the direct care of this critically ill patient, excluding procedure time. ED Disposition Clinical Impression: Inevitable complete miscarriage without complication, Acute urinary tract infection, Excessive vaginal bleeding Acute allergic reaction Qualifiers: Encounter type: initial encounter Qualified Code(s): T78.40XA - Allergy, unspecified, initial encounter Disposition: HOME / SELF CARE / HOMELESS Is pt being admited?: No Does the pt Need Aspirin: No Condition: Stable Instructions: Miscarriage, [id number], Allergies, Adult, [id number], Urinary Tract Infection, Adult, [id number], Abnormal Uterine Bleeding, [id number] Additional Instructions: Take medication with food, drink plenty of fluids and follow-up with your SITE SAFETY REPRESENTATIVE physician in 3 to 5 days for reevaluation. Maintain a complete pelvic rest devoid of heavy lifting, strenuous physical activities. Return to the ED immediately if symptoms get worse. Prescriptions: diphenhydrAMINE [Benadryl CAP] 25 mg PO Q8HR PRN #30 capsule PRN Reason: Allergic Reaction predniSONE [Deltasone] 40 mg PO QDAY #10 tab Ferrous Sulfate [Feosol 325 MG tab] 325 mg PO BID #60 tablet cephALEXin [Keflex] 500 mg PO Q8HR #30 cap Ibuprofen [Motrin] 800 mg PO Q8HR PRN #30 tablet PRN Reason: Pain , Severe (7-10) traMADoL [Ultram 50 MG tab] 50 mg PO Q6HR PRN #12 tablet PRN Reason: Pain Ondansetron [Zofran Odt] 4 mg PO Q8HR PRN #15 tab.rapdis PRN Reason: Nausea Referrals: KURT MELÉNDEZ MD [Staff Physician] - 3-5 Days Forms: Work/School Release Form(ED) Time of Disposition: 04:45 Print Language: SLOVAK
[2021-05-24 09:09] VITALS: BP 103/70
== END 2021-05-24 09:10 | disposition home or self-care (01) ==
LOC: ED 23:42
DX: O03.1 Delayed or excessive hemorrhage following incomplete spontaneous abortion (principal); N39.0 Urinary tract infection, site not specified; T78.40XA Allergy, unspecified, initial encounter; X58.XXXA Exposure to other specified factors, initial encounter; R01.1 Cardiac murmur, unspecified; Z98.890 Other specified postprocedural states; F17.200 Nicotine dependence, unspecified, uncomplicated; Z88.5 Allergy status to narcotic agent
CPT/HCPCS: 36415; 80053; 81001; 83690; 84702; 85025; 87086; 96361; 96365; 96375; 99283; J0696; J1100; J1200; J2270; J2405; J7030

== ENCOUNTER 2021-07-19 21:25 | Emergency (ER) | payer MEDICAID ==
[2021-07-19 22:09] VITALS: BP 129/80
--- NOTE | 2021-07-19 23:20 | Event Note ---
ED Screening Note Date of service: 07/19/21 Time: 23:08 ED Screening Note: Pt presents with complaints of spotty vaginal bleeding and lower abdominal pain Patient states that she had a miscarriage in May and has been following with her DESKTOP PUBLISHER for this She reports that she has an appointment to see her DESKTOP PUBLISHER on Monday, however she was informed to seek emergency treatment if her symptoms worsen No fever/chills/sweats, urinary frequency, hematuria, or dysuria patient She states that her DESKTOP PUBLISHER believes she may have retained products of conception This initial assessment/diagnostic orders/clinical plan/treatment(s) is/are subject to change based on patients health status, clinical progression and re- assessment by fellow clinical providers in the ED. Further treatment and workup at subsequent clinical providers discretion. Patient/guardian urged not to elope from the ED as their condition may be serious if not clinically assessed and managed. Initial orders include: labs US
[2021-07-19 23:49] LABS: Basophils % (Auto) 0.6 % (0.0-1.8); Eosinophils # (Auto) 0.2 K/mm3 (0.0-0.4); Hematocrit 36.7 % (30.3-42.9); Hemoglobin 11.5 gm/dl (10.1-14.3); Mean Corpuscular HGB Conc 32 % (30-34); Mean Corpuscular Volume 91 fl (79-97); Monocytes # (Auto) 0.4 K/mm3 (0.0-0.8); Monocytes % (Auto) 7.2 % (0.0-7.3); Platelet Count 395 K/mm3 (140-440); Red Blood Count 4.02 M/mm3 (3.65-5.03); Red Cell Distribution Width 15.3 % (13.2-15.2)
--- NOTE | 2021-07-20 | Emergency Department Report ---
<JUNIOR QUINN - Last Filed: 07/20/21 01:41> ED Female HPI - General Chief complaint: Vaginal Bleeding Stated complaint: SHORTNESS OF BREATH/LIGHT HEADED Time Seen by Provider: 07/19/21 22:38 - Related Data Home Medications Medication Instructions Recorded Confirmed Last Taken Valacyclovir HCl [valACYclovir] 1 tab PO BID 02/14/16 03/30/16 2 Weeks Ago ~01/31/16 Previous Rx's Medication Instructions Recorded Last Taken Type Ibuprofen [Motrin 600 MG tab] 600 mg PO Q6H #30 tablet 09/21/14 Unknown Rx oxyCODONE /ACETAMINOPHEN [Percocet 1 tab PO Q6H PRN #30 tablet 09/21/14 Unknown Rx 5/325 mg] Azithromycin [AzaSITE Opth Drops] 2.5 ml OP DAILY 7 Days #1 drops 12/05/17 Unknown Rx Cetirizine HCl [Zyrtec 10mg tab] 10 mg PO DAILY #30 tablet 12/05/17 Unknown Rx Amoxicillin [Amoxicillin TAB] 875 mg PO BID #20 tablet 12/07/17 Unknown Rx Ciprofloxacin 0.2%(Nf) 4 drops TID #1 droperette 12/07/17 Unknown Rx [Ciprofloxacin Otic 0.2%(Nf)] Diclofenac Sodium 50 mg PO Q8H PRN #30 tablet. 03/04/20 Unknown Rx methOCARBAMOL [Robaxin TAB] 750 mg PO Q8H PRN #30 tablet 03/04/20 Unknown Rx predniSONE [Deltasone] 40 mg PO QDAY #10 tab 03/04/20 Unknown Rx Iron Fum,Ps/Folic/Bcomp,C No.9 1 each PO BID 30 Days #60 capsule 05/20/21 Unknown Rx [Integra Plus Capsule] miSOPROStoL [Cytotec] 200 mcg PO Q6HR 1 Days #4 tablet 05/20/21 Unknown Rx Ferrous Sulfate [Feosol 325 MG tab] 325 mg PO BID #60 tablet 05/24/21 Unknown Rx Ibuprofen [Motrin] 800 mg PO Q8HR PRN #30 tablet 05/24/21 Unknown Rx Ondansetron [Zofran Odt] 4 mg PO Q8HR PRN #15 tab.rapdis 05/24/21 Unknown Rx cephALEXin [Keflex] 500 mg PO Q8HR #30 cap 05/24/21 Unknown Rx diphenhydrAMINE [Benadryl CAP] 25 mg PO Q8HR PRN #30 capsule 05/24/21 Unknown Rx predniSONE [Deltasone] 40 mg PO QDAY #10 tab 05/24/21 Unknown Rx traMADoL [Ultram 50 MG tab] 50 mg PO Q6HR PRN #12 tablet 05/24/21 Unknown Rx Allergies Allergy/AdvReac Type Severity Reaction Status Date / Time morphine Allergy Shortness Verified 05/24/21 04:09 of Breath ED Past Medical Hx - Medications Home Medications: Home Medications Medication Instructions Recorded Confirmed Last Taken Type Ibuprofen [Motrin 600 MG tab] 600 mg PO Q6H #30 tablet 09/21/14 03/30/16 Unknown Rx oxyCODONE /ACETAMINOPHEN [Percocet 1 tab PO Q6H PRN #30 tablet 09/21/14 03/30/16 Unknown Rx 5/325 mg] Valacyclovir HCl [valACYclovir] 1 tab PO BID 02/14/16 03/30/16 2 Weeks Ago History ~01/31/16 Azithromycin [AzaSITE Opth Drops] 2.5 ml OP DAILY 7 Days #1 drops 12/05/17 Unknown Rx Cetirizine HCl [Zyrtec 10mg tab] 10 mg PO DAILY #30 tablet 12/05/17 Unknown Rx Amoxicillin [Amoxicillin TAB] 875 mg PO BID #20 tablet 12/07/17 Unknown Rx Ciprofloxacin 0.2%(Nf) 4 drops TID #1 droperette 12/07/17 Unknown Rx [Ciprofloxacin Otic 0.2%(Nf)] Diclofenac Sodium 50 mg PO Q8H PRN #30 tablet. 03/04/20 Unknown Rx methOCARBAMOL [Robaxin TAB] 750 mg PO Q8H PRN #30 tablet 03/04/20 Unknown Rx predniSONE [Deltasone] 40 mg PO QDAY #10 tab 03/04/20 Unknown Rx Iron Fum,Ps/Folic/Bcomp,C No.9 1 each PO BID 30 Days #60 capsule 05/20/21 Unknown Rx [Integra Plus Capsule] miSOPROStoL [Cytotec] 200 mcg PO Q6HR 1 Days #4 tablet 05/20/21 Unknown Rx Ferrous Sulfate [Feosol 325 MG tab] 325 mg PO BID #60 tablet 05/24/21 Unknown Rx Ibuprofen [Motrin] 800 mg PO Q8HR PRN #30 tablet 05/24/21 Unknown Rx Ondansetron [Zofran Odt] 4 mg PO Q8HR PRN #15 tab.rapdis 05/24/21 Unknown Rx cephALEXin [Keflex] 500 mg PO Q8HR #30 cap 05/24/21 Unknown Rx diphenhydrAMINE [Benadryl CAP] 25 mg PO Q8HR PRN #30 capsule 05/24/21 Unknown Rx predniSONE [Deltasone] 40 mg PO QDAY #10 tab 05/24/21 Unknown Rx traMADoL [Ultram 50 MG tab] 50 mg PO Q6HR PRN #12 tablet 05/24/21 Unknown Rx ED Medical Decision Making - Lab Data Result diagrams: 07/19/21 23:08 07/19/21 23:08 - Medical Decision Making Discussed patient with Dr. Ruffin, [facility]ALONE SHELLER on-call. He states patient does need D&C, however no emergent surgery is needed today given patient is stable with normal vitals and white count is normal. Discussed ultrasound findings with patient who is very agitated. Informed her that she will need to have a D&C and to follow-up with her ABALONE SHELLER this week. She states she is scheduled for Monday. Patient is nontoxic-appearing and ambulating around triage area. She is stable for discharge home. Offered patient pain medication to control her symptoms, however she states she already has prescribed pain medications. Patient left prior to discharge ED Disposition Clinical Impression: Retained products of conception, Miscarriage Disposition: AWOL/ELOPED Condition: Stable Referrals: PRIMARY CARE, [Primary Care Provider] - 3-5 Days <DAVIDA RODRÍGUEZ - Last Filed: 07/20/21 02:04> ED Female HPI - General Source: patient Mode of arrival: Ambulatory Limitations: No Limitations - History of Present Illness Initial comments: 36-year-old old female presents to the hospital with vaginal spotting and abdominal pain. For the past 7 days patient has had interim brown malodorous vaginal spotting and cramping suprapubic abdominal pain. Patient also have epigastric pain worse with palpation. Today patient developed lightheadedness, shortness of breath, and headache but states symptoms might of started after a stressful argument with her son. Patient was seen here May 20 as well as May for for a miscarriage with decreasing clots and treatment with Cytotec. Patient states after taking Cytotec her bleeding stopped. She has been following up with her ABALONE SHELLER MD and her quant decreased to 33 last week but then increased back up to 75. patient denies fever. Positive nausea without vomiting. Patient was sexually active June 24. Her CLINICAL TRIAL LEADER doctor is located in [place] ED Review of Systems ROS: Stated complaint: SHORTNESS OF BREATH/LIGHT HEADED Other details as noted in HPI Comment: All other systems reviewed and negative ED Past Medical Hx - Past Medical History Hx Hypertension: No Hx Congestive Heart Failure: No Hx Diabetes: No Hx Deep Vein Thrombosis: No Hx Renal Disease: No Hx Sickle Cell Disease: No Hx Seizures: No Hx Asthma: No Hx COPD: No Hx HIV: No Additional medical history: heart murmur - Surgical History Additional Surgical History: hernia repair - Social History Smoking Status: Current Every Day Smoker Substance Use Type: None ED Physical Exam - General Limitations: No Limitations - Other Other exam information: General: No acute distress Head: Atraumatic Eyes: normal appearance ENT: Moist mucous membranes Neck: Normal appearance, no midline tenderness Chest: Clear to auscultation bilaterally CV: Regular rate and rhythm Abdomen: Soft, normal bowel sounds, epigastric tenderness, suprapubic tender, mild distention, no rebound or guard Back: Normal inspection Extremity: Normal inspection, full range of motion, no calf tenderness or leg edema Neuro: Alert O x 3, no facial asymmetry, speech clear, no gross motor sensory deficit Psych: Appropriate behavior Skin: No rash ED Course Vital Signs 07/19/21 22:05 Temperature 99.1 F Pulse Rate 86 Respiratory 16 Rate Blood Pressure 129/80 [Right] O2 Sat by Pulse 100 Oximetry ED Medical Decision Making - Lab Data Result diagrams: 07/19/21 23:08 07/19/21 23:08 Lab Results 07/19/21 07/19/21 07/19/21 Range/Units 23:08 23:08 23:08 WBC 6.0 (4.5-11.0) K/mm3 RBC 4.02 (3.65-5.03) M/mm3 Hgb 11.5 (10.1-14.3) gm/dl Hct 36.7 (30.3-42.9) % MCV 91 (79-97) fl MCH 29 (28-32) pg MCHC 32 (30-34) % RDW 15.3 H (13.2-15.2) % Plt Count 395 (140-440) K/mm3 Lymph % (Auto) 49.0 H (13.4-35.0) % [place] % (Auto) 7.2 (0.0-7.3) % Eos % (Auto) 3.0 (0.0-4.3) % Baso % (Auto) 0.6 (0.0-1.8) % Lymph # (Auto) 3.0 (1.2-5.4) K/mm3 [place] # (Auto) 0.4 (0.0-0.8) K/mm3 Eos # (Auto) 0.2 (0.0-0.4) K/mm3 Baso # (Auto) 0.0 (0.0-0.1) K/mm3 Seg Neutrophils % 40.2 (40.0-70.0) % Seg Neutrophils # 2.4 (1.8-7.7) K/mm3 Sodium 144 (137-145) mmol/L Potassium 3.8 (3.6-5.0) mmol/L Chloride 107.8 H (98-107) mmol/L Carbon Dioxide 23 (22-30) mmol/L Anion Gap 17 mmol/L BUN 15 (7-17) mg/dL Creatinine 0.8 (0.6-1.2) mg/dL Estimated GFR > 60 ml/min BUN/Creatinine Ratio 19 % Glucose 93 (65-100) mg/dL Calcium 9.0 (8.4-10.2) mg/dL Total Bilirubin < 0.20 (0.1-1.2) mg/dL AST 16 (5-40) units/L ALT 14 (7-56) units/L Alkaline Phosphatase 87 (35-129) units/L Total Protein 7.8 (6.3-8.2) g/dL Albumin 4.5 (3.9-5) g/dL Albumin/Globulin Ratio 1.4 % HCG, Quant 1.39 (0-4) mIU/mL Urine Color (Yellow) Urine Turbidity (Clear) Urine pH (5.0-7.0) Ur Specific [place] (1.003-1.030) Urine Protein (Negative) mg/dL Urine Glucose (UA) (Negative) mg/dL Urine Ketones (Negative) mg/dL Urine Blood (Negative) Urine Nitrite (Negative) Urine Bilirubin (Negative) Urine Urobilinogen (<2.0) mg/dL Ur Leukocyte Esterase (Negative) Urine WBC (Auto) (0.0-6.0) /HPF Urine RBC (Auto) (0.0-6.0) /HPF U Epithel Cells (Auto) (0-13.0) /HPF 07/20/21 Range/Units 00:46 WBC (4.5-11.0) K/mm3 RBC (3.65-5.03) M/mm3 Hgb (10.1-14.3) gm/dl Hct (30.3-42.9) % MCV (79-97) fl MCH (28-32) pg MCHC (30-34) % RDW (13.2-15.2) % Plt Count (140-440) K/mm3 Lymph % (Auto) (13.4-35.0) % [place] % (Auto) (0.0-7.3) % Eos % (Auto) (0.0-4.3) % Baso % (Auto) (0.0-1.8) % Lymph # (Auto) (1.2-5.4) K/mm3 [place] # (Auto) (0.0-0.8) K/mm3 Eos # (Auto) (0.0-0.4) K/mm3 Baso # (Auto) (0.0-0.1) K/mm3 Seg Neutrophils % (40.0-70.0) % Seg Neutrophils # (1.8-7.7) K/mm3 Sodium (137-145) mmol/L Potassium (3.6-5.0) mmol/L Chloride (98-107) mmol/L Carbon Dioxide (22-30) mmol/L Anion Gap mmol/L BUN (7-17) mg/dL Creatinine (0.6-1.2) mg/dL Estimated GFR ml/min BUN/Creatinine Ratio % Glucose (65-100) mg/dL Calcium (8.4-10.2) mg/dL Total Bilirubin (0.1-1.2) mg/dL AST (5-40) units/L ALT (7-56) units/L Alkaline Phosphatase (35-129) units/L Total Protein (6.3-8.2) g/dL Albumin (3.9-5) g/dL Albumin/Globulin Ratio % HCG, Quant (0-4) mIU/mL Urine Color Yellow (Yellow) Urine Turbidity Slightly-cloudy (Clear) Urine pH 7.0 (5.0-7.0) Ur Specific [place] 1.025 (1.003-1.030) Urine Protein <15 mg/dl (Negative) mg/dL Urine Glucose (UA) Neg (Negative) mg/dL Urine Ketones Neg (Negative) mg/dL Urine Blood Neg (Negative) Urine Nitrite Neg (Negative) Urine Bilirubin Neg (Negative) Urine Urobilinogen < 2.0 (<2.0) mg/dL Ur Leukocyte Esterase Neg (Negative) Urine WBC (Auto) 3.0 (0.0-6.0) /HPF Urine RBC (Auto) 7.0 (0.0-6.0) /HPF U Epithel Cells (Auto) 11.0 (0-13.0) /HPF - Radiology Data Radiology results: report reviewed TRANSABDOMINAL PELVIC ULTRASOUND INDICATION / CLINICAL INFORMATION: Possible retained products of conception. Pelvic pain and uterine bleeding. COMPARISON: 05/24/21. FINDINGS: The uterus measures approximately 11.5 x 6.2 x 7.4 cm. The endometrial stripe measures 2.1 cm AP. The endometrium is heterogeneous. There is prominent internal blood flow on Doppler exam. The left ovary measures 1.9 x 1.6 x 1.3 cm. The right ovary is not visualized. There is no evidence of adnexal mass or free fluid. IMPRESSION: Thickened heterogeneous endometrium with increased blood flow on Doppler exam is characteristic of retained products of conception. Critical Care Time: No Critical care attestation.: If time is entered above; I have spent that time in minutes in the direct care of this critically ill patient, excluding procedure time. ED Disposition Is pt being admited?: No Time of Disposition: 02:03 (pt left without d/c instructions.)
[2021-07-20 00:19] LABS: Alanine Aminotransferase 14 units/L (7-56); Albumin 4.5 g/dL (3.9-5); BUN/Creatinine Ratio 19; Blood Urea Nitrogen 15 mg/dL (7-17); Hemolysis Index 6
--- NOTE | 2021-07-20 00:41 | Ultrasound Report ---
TRANSABDOMINAL PELVIC ULTRASOUND INDICATION / CLINICAL INFORMATION: Possible retained products of conception. Pelvic pain and uterine bleeding. COMPARISON: 05/24/21. FINDINGS: The uterus measures approximately 11.5 x 6.2 x 7.4 cm. The endometrial stripe measures 2.1 cm AP. The endometrium is heterogeneous. There is prominent internal blood flow on Doppler exam. The left ovary measures 1.9 x 1.6 x 1.3 cm. The right ovary is not visualized. There is no evidence o f adnexal mass or free fluid. IMPRESSION: Thickened heterogeneous endometrium with increased blood flow on Doppler exam is characte ristic of retained products of conception. Signer Name: Kevin Larsen MD Signed: 07/20/2021 12:37 AM Workstation Name: [id number]
[2021-07-20 01:24] LABS: Bilirubin,Urine NEG (Negative); Blood,Urine NEG (Negative); Color,Urine Yellow (Yellow); Protein,Urine <15 mg/dL mg/dL (Negative); Urobilinogen,Urine < 2.0 mg/dL (<2.0)
== END 2021-07-20 03:53 | disposition left against medical advice (07) ==
LOC: ED 21:25
DX: O03.4 Incomplete spontaneous abortion without complication (principal); O03.9 Complete or unspecified spontaneous abortion without complication; F17.200 Nicotine dependence, unspecified, uncomplicated
CPT/HCPCS: 36415; 76856; 80053; 81001; 84702; 85025

== ENCOUNTER 2022-03-11 19:39 | Emergency (ER) | payer MEDICAID ==
[2022-03-11 20:10] VITALS: BP 155/87
[2022-03-11] MEDS ORDERED: ONDANSETRON 4 MG/2 ML INJ IV ONE (20:35)
[2022-03-11] MEDS ORDERED: HYDROmorphone 1 MG/1 ML INJ IV ONE (20:35)
[2022-03-11] MEDS ORDERED: SODIUM CHLORIDE 0.9% 1000 ML 1,000 ML IV ONE (20:35)
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
[2022-03-11 22:30] LABS: Alanine Aminotransferase 13 units/L (7-56); Albumin 3.7 g/dL (3.9-5); Blood Urea Nitrogen 6 mg/dL (7-17); Calcium 8.5 mg/dL (8.4-10.2); Hemolysis Index 2
[2022-03-11 22:35] LABS: BUN/Creatinine Ratio 10; Bilirubin,Direct < 0.2 mg/dL (0-0.2)
[2022-03-11 22:36] LABS: Basophils % (Auto) 0.4 % (0.0-1.8); Eosinophils # (Auto) 0.1 K/mm3 (0.0-0.4); Eosinophils % (Auto) 0.8 % (0.0-4.3); Hematocrit 32.3 % (30.3-42.9); Hemoglobin 10.9 gm/dl (10.1-14.3); Lymphocytes # (Auto) 2.5 K/mm3 (1.2-5.4); Lymphocytes % (Auto) 23.9 % (13.4-35.0); Mean Corpuscular HGB Conc 34 % (30-34); Mean Corpuscular Volume 97 fl (79-97); Monocytes # (Auto) 0.7 K/mm3 (0.0-0.8); Platelet Count 291 K/mm3 (140-440); Red Blood Count 3.34 M/mm3 (3.65-5.03); Red Cell Distribution Width 13.7 % (13.2-15.2)
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
== END 2022-03-12 01:13 | disposition home or self-care (01) ==
LOC: ED 19:39
DX: O9A.212 Injury, poisoning and certain other consequences of external causes complicating pregnancy, second trimester (principal); S30.811A Abrasion of abdominal wall, initial encounter; Z3A.24 24 weeks gestation of pregnancy; Y08.89XA Assault by other specified means, initial encounter; Y93.89 Activity, other specified; Y92.89 Other specified places as the place of occurrence of the external cause; Y99.8 Other external cause status
CPT/HCPCS: 36415; 76805; 80048; 80076; 84702; 85025; 96361; 96374; 96375; 99284; J1170; J2405; J7030